=== PATIENT | male | born 2005 | race Two or more races ===

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

== ENCOUNTER 2024-02-03 20:47 | Emergency (ER) | payer MEDICAID, SELFPAY ==
--- NOTE | ~2024-02-03 | XR_ITS ---
EXAMINATION: XR CHEST CLINICAL INFORMATION: Cough. COMPARISON: None available. TECHNIQUE: 2 views of the chest were obtained. FINDINGS: The cardiomediastinal silhouette is within normal limits in size. There is dense consolidation seen in the right middle lobe, suspicious for pneumonia. Diffuse thickening of the central spinal areas and perihilar reticular prominence is noted, suggesting underlying reactive airways disease or bronchitis. No other focal dense consolidation. No effusion. No pneumothorax. Mild S-shaped thoracolumbar scoliosis. XR/XR chest 2V IMPRESSION: Findings are suspicious for reactive airways disease or bronchitis with superimposed right middle lobe pneumonia. Close clinical correlation and follow-up as clinically appropriate is recommended. Electronically signed by: Ashia Sin MD 02/03/2024 10:26 PM EDT
[2024-02-03 20:49] VITALS: BP 132/82; PULSE 93; RESP 18; TEMP 38.4; O2SAT 100; BMI 25.3
--- NOTE | 2024-02-03 20:50 | ED_ITS ---
HPI - General Adult General Chief complaint: Upper Respiratory Symptoms Stated complaint: dry cough Time Seen by Provider: 02/03/24 22:21 Source: patient Mode of arrival: ambulatory Limitations: no limitations History of Present Illness ED Provider: aristeo GOMEZ narrative: Patient is 18 years old otherwise healthy comes here for 1 week of cough with mucopurulent phlegm fever sore throat congestion on arrival temperature was 101.1 degrees no other family member sick Related Data Previous Rx's ?Medication ?Instructions ?Recorded ondansetron 4 mg disintegrating 4 mg PO Q8H 3 days #9 tabs 05/19/23 tablet cefuroxime axetil 500 mg tablet 500 mg PO BID 10 days #20 tabs 02/04/24 doxycycline hyclate 100 mg tablet 100 mg PO BID #20 tabs 02/04/24 ibuprofen 600 mg tablet 600 mg PO Q6H PRN fever or pain 02/04/24 #30 tabs Allergies Allergy/AdvReac Type Severity Reaction Status Date / Time No Known Allergies Allergy Verified 02/03/24 20:53 Review of Systems 2 Review of Systems: Yes all other systems are reviewed and are negative ON LICENSE OF [facility] Social History Social History Smoked in Last 30 Days: No Advance Directives: No Advance Directives Information Provided: No Do you have a plan to hurt others: No Plan Physical Exam ED Vital Signs: Vital Signs - 24 hr 02/03/24 20:49 02/03/24 22:00 02/03/24 22:22 Temperature 101.1 F H 99.3 F 99.3 F Pulse Rate 93 102 H Respiratory Rate 18 18 Blood Pressure 132/82 123/76 Pulse Oximetry 100 95 Oxygen Delivery Method Room Air Room Air 02/03/24 22:22 02/04/24 00:01 Temperature 99.3 F 98.4 F Pulse Rate 96 Respiratory Rate 18 Blood Pressure 128/68 Pulse Oximetry 97 Oxygen Delivery Method Room Air BMI result Body Mass Index 25.3 Appearance: Alert. Oriented X3. No acute distress. Eyes: No pallor or icterus ENT: Pharynx normal. Oral Mucosa moist Neck: Normal inspection. Neck supple. CVS: Normal heart rate and rhythm. Pulses normal. Respiratory: No respiratory distress. Equal air entry bilateral, rales at the right lung base axillary area Abdomen: Soft and nontender. Bowel sounds are present, no mass palpable, Skin: Skin warm and dry. Normal skin color. Normal skin turgor. Extremities: No lower extremity edema. No calf tenderness Neuro: Oriented X 3. Course Course Course Narrative: RME performed by Melissa Hawkins PA-C. Patient is a 18 year old assigned male at presenting to the emergency department with cough, fever, and feeling generally unwell. Patient states over the last 6 days he has felt generally unwell with a cough, sore throat. Detailed physical exam and review of systems are deferred to the blowing weasand. Imaging and swabs ordered. Patient placed back in the waiting room pending room availability and results. Medications Administered Discontinued Medications Generic Name Dose Route Start Last Admin Trade Name Freq PRN Reason Stop Dose Admin Acetaminophen 975 mg 02/03/24 20:54 02/03/24 20:58 Acetaminophen 325 Mg Tablet PO 02/03/24 20:55 975 mg ONCE ONE Administration Ceftriaxone Sodium 1 gm/ 50 mls @ 100 mls/hr 02/03/24 22:24 02/03/24 23:30 Sodium Chloride IV 02/03/24 22:53 Infused ONCE ONE Infusion Sodium Chloride 1,000 mls @ 999 mls/hr 02/03/24 22:24 02/04/24 00:01 Ns IV 02/03/24 23:24 Infused .Q1H1M ONE Infusion Ibuprofen 400 mg 02/03/24 20:54 02/03/24 20:58 Ibuprofen 400 Mg Tablet PO 02/03/24 20:55 400 mg ONCE ONE Administration Medical Decision Making Lab Data MDM Lab Attestation statement: I reviewed the patient's lab results. 02/04/24 00:23 02/04/24 00:23 Labs: Lab Results 02/03/24 02/04/24 Range/Units 20:59 00:23 WBC 5.9 (4.8-10.8) X10*3/uL RBC 4.44 L (4.60-5.80) X10*6/uL Hgb 13.1 L (14.0-18.0) g/dl Hct 37.1 L (42.0-52.0) % MCV 83.6 (80.0-98.0) fL MCH 29.5 (27.0-33.0) pg MCHC 35.3 (31.0-36.0) g/dl RDW 12.6 (11.0-16.0) % Plt Count 206 (160-400) X10*3/uL MPV 9.1 L (9.4-12.4) fL Immature Gran % (Auto) 0.5 H (0.0-0.4) % Neut % (Auto) 68.8 (45-73) % Lymph % (Auto) 18.7 L (20-40) % [place] % (Auto) 10.5 (2-11) % Eos % (Auto) 1.2 (0-4) % Baso % (Auto) 0.3 (0-2) % Lymph # (Auto) 1.1 L (1.2-4.9) X10*3/uL [place] # (Auto) 0.6 (0.1-1.2) X10*3/uL Eos # (Auto) 0.1 (0.0-0.4) X10*3/uL Baso # (Auto) 0.0 (0.0-0.2) X10*3/uL Abs Immat Gran (auto) 0.03 (0.00-0.03) X10*3/uL Absolute Neuts (auto) 4.1 (2.0-8.3) x10*3/uL Absolute Nucleated RBC 0.000 (0.0-0.012) X10*3/uL Nucleated RBC % (auto) 0.0 (0.0-0.2) /100WBC Sodium 140 (135-145) mmol/L Potassium 3.9 (3.3-5.1) mmol/L Chloride 105 (96-108) mmol/L Carbon Dioxide 26 (22-29) mmol/L Anion Gap 13 (12-20) BUN 9 (9-16) mg/dL Creatinine 0.80 (0.5-1.4) mg/dL Estim Creat Clear Calc 129.1 Estimated GFR > 60 Random Glucose 109 (60-115) mg/dL Lactic Acid 0.7 (0.5-2.0) mmol/L Calcium 8.9 (8.4-10.2) mg/dL Total Bilirubin 0.4 (0.0-1.0) mg/dL AST 37 (5-37) U/L ALT 22 (0-40) U/L Alkaline Phosphatase 44 (39-117) U/L Total Protein 6.8 (6.5-8.0) g/dL Albumin 3.7 (3.5-5.0) g/dL Influenza Type A (PCR) NEGATIVE (Negative) Influenza Type B (PCR) NEGATIVE (Negative) RSV RNA Qual (PCR) NEGATIVE (Negative) SARS-CoV-2 RNA (RT-PCR) NEGATIVE (Negative) S. pyogenes GrpA WILLIAM Negative (Negative) Independent Interpretation I performed an independent interpretation of an: Plain X-Ray Interpretation: Patient: Gucci Pandey MR#: [id number] : 2005 Acct:[id number] Age/Sex: 18 / M ADM Date: 02/03/24 Loc: HO.ED Attending Dr: Ordering Physician: Melissa Hawkins Date of Service: 02/03/24 Procedure(s): XR chest 2V Accession Number(s): [id number] cc: Dominique Rosas MD; Melissa Hawkins~ EXAMINATION: XR CHEST CLINICAL INFORMATION: Cough. COMPARISON: None available. TECHNIQUE: 2 views of the chest were obtained. FINDINGS: The cardiomediastinal silhouette is within normal limits in size. There is dense consolidation seen in the right middle lobe, suspicious for pneumonia. Diffuse thickening of the central spinal areas and perihilar reticular prominence is noted, suggesting underlying reactive airways disease or bronchitis. No other focal dense consolidation. No effusion. No pneumothorax. Mild S-shaped thoracolumbar scoliosis. XR/XR chest 2V IMPRESSION: Findings are suspicious for reactive airways disease or bronchitis with superimposed right middle lobe pneumonia. Close clinical correlation and follow-up as clinically appropriate is recommended. Electronically signed by: Ashia Sin MD 02/03/2024 10:26 PM EDT Dictated By: Ashia Sin MD Signed By: <Electronically signed by Ashia Sin MD in OV> 02/03/242225 DD/ 50 TD/TT: 02/03/242102 Catheter Finisher And Inspector: BRYANT Discharge Plan Discharge Clinical Impression: Pneumonia Patient Disposition: Home, Self-Care Instructions: Community Acquired Pneumonia (ED) Additional Instructions: Drink plenty of fluids Tylenol/Motrin for fever Take antibiotics as prescribed Report to the ER/PCP if not better Prescriptions: New ibuprofen 600 mg tablet 600 mg PO Q6H PRN (Reason: fever or pain) Qty: 30 0RF cefuroxime axetil 500 mg tablet 500 mg PO BID 10 Days Qty: 20 0RF doxycycline hyclate 100 mg tablet 100 mg PO BID Qty: 20 0RF No Action ondansetron 4 mg tablet,disintegrating 4 mg PO Q8H 3 Days Qty: 9 0RF Print Language: Ug[place]an
[2024-02-03] MEDS: Acetaminophen 325 MG TABLET 975 MG PO (20:58)
[2024-02-03] MEDS: Ibuprofen 400 MG TABLET PO (20:58)
[2024-02-03 21:42] LABS: Influenza A PCR NEGATIVE (Negative); Influenza B PCR NEGATIVE (Negative); Resp Syncy Virus RNA Qual PCR NEGATIVE (Negative); SARS COV2 PCR INHOUSE NEGATIVE (Negative)
[2024-02-03 21:43] LABS: IDNOW Serial# 08D9AD1C; Strep A Nucleic Acid Negative (Negative)
[2024-02-03 22:00] VITALS: BP 123/76; PULSE 102; RESP 18; TEMP 37.4; O2SAT 95
[2024-02-03 22:22] VITALS: TEMP 37.4
[2024-02-03] MEDS: cefTRIAXone sodium 1 GM in 0.9 % Sodium Chloride 50 ML IV (22:53)
[2024-02-03] MEDS: 0.9 % Sodium Chloride 1,000 ML 999 ML IV (22:53)
--- NOTE | 2024-02-03 22:59 | PC.NURSE ---
pt medicated per MAR
[2024-02-04 00:01] VITALS: BP 128/68; PULSE 96; RESP 18; TEMP 36.9; O2SAT 97
[2024-02-04 00:31] LABS: Basophils Percent Auto 0.3 % (0-2); Eosinophils Absolute Auto 0.1 X10*3/uL (0.0-0.4); Eosinophils Percent Auto 1.2 % (0-4); Hematocrit 37.1 % (42.0-52.0); Hemoglobin 13.1 g/dl (14.0-18.0); Imm Gran Abs Auto 0.03 X10*3/uL (0.00-0.03); Imm Gran Pct Auto 0.5 % (0.0-0.4); Lymphocytes Absolute Auto 1.1 X10*3/uL (1.2-4.9); Lymphocytes Percent Auto 18.7 % (20-40); MANUAL DIFF FLAG NO; Mean Corpuscular HGB Conc 35.3 g/dl (31.0-36.0); Mean Corpuscular Hemoglobin 29.5 pg (27.0-33.0); Mean Corpuscular Volume 83.6 fL (80.0-98.0); Mean Platelet Volume 9.1 fL (9.4-12.4); Monocytes Absolute Auto 0.6 X10*3/uL (0.1-1.2); Monocytes Percent Auto 10.5 % (2-11); Neutrophils Absolute Auto 4.1 x10*3/uL (2.0-8.3); Neutrophils Percent Auto 68.8 % (45-73); Platelet Count 206 X10*3/uL (160-400); Red Blood Count 4.44 X10*6/uL (4.60-5.80); Red Cell Distribution Width 12.6 % (11.0-16.0); White Blood Count 5.9 X10*3/uL (4.8-10.8)
[2024-02-04 00:40] LABS: Lactic Acid 0.7 mmol/L (0.5-2.0)
[2024-02-04 00:44] LABS: Alanine Aminotransferase 22 U/L (0-40); Albumin Level 3.7 g/dL (3.5-5.0); Alkaline Phosphatase 44 U/L (39-117); Anion Gap 13 (12-20); Aspartate Amino Transferase 37 U/L (5-37); Bilirubin Total 0.4 mg/dL (0.0-1.0); Blood Urea Nitrogen 9 mg/dL (9-16); Calcium 8.9 mg/dL (8.4-10.2); Carbon Dioxide 26 mmol/L (22-29); Chloride 105 mmol/L (96-108); Creatinine Clr Calc Pharmacy 129.1; Estimated Glomerular Filt Rate > 60; Glucose Random 109 mg/dL (60-115); Potassium 3.9 mmol/L (3.3-5.1); Sodium 140 mmol/L (135-145); Total Protein 6.8 g/dL (6.5-8.0)
[2024-02-04 01:19] VITALS: BP 122/72; PULSE 90; RESP 18; TEMP 37.2; O2SAT 98
== END 2024-02-04 01:20 | disposition home or self-care (01) ==
PROVIDERS: Physician Assistant Medical; Emergency Provider Internal Medicine; PCP Pediatrics
DX: J18.9 Pneumonia, unspecified organism (principal); Z03.818 Encounter for observation for suspected exposure to other biological agents ruled out; R50.9 Fever, unspecified; R05.9 Cough, unspecified
CPT/HCPCS: 0241U; 36415; 71046; 80053; 83605; 85025; 87651; 96361; 96365; 99284; 99285; J0696

== ENCOUNTER 2024-12-23 11:03 | Outpatient (REF) | payer MEDICAID, SELFPAY ==
[2024-12-24 03:56] LABS: HIV Num 1 0.05 S/CO (0.00-0.99); ~HepC Num1 0.12 S/CO (0.00-0.79); ~Hepatitis C Antibody Nonreactive (Nonreactive)
== END 2024-12-23 11:04 | disposition home or self-care (01) ==
LOC: HO.CHCLDS 11:03
PROVIDERS: Visit Provider Internal Medicine
DX: Z00.00 Encounter for general adult medical examination without abnormal findings (principal); Z11.3 Encounter for screening for infections with a predominantly sexual mode of transmission; Z11.4 Encounter for screening for human immunodeficiency virus [HIV]; Z11.59 Encounter for screening for other viral diseases
CPT/HCPCS: 36415; 86592; 86803; 87389